=== PATIENT | female | born 1985 | race Two or more races ===

== ENCOUNTER 2021-05-03 19:52 | Emergency (ER) | payer OTHER ==
[~2021-05-03] VITALS: Ht 160 cm; Wt 72.0 kg
[2021-05-03] MEDS ORDERED: IV NORMAL SALINE 1,000ML 1,000 ML IV SCH (21:00)
--- NOTE | 2021-05-03 21:06 | EKG ---
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
[2021-05-03 21:15] VITALS: BP 150/99
[2021-05-03 21:37] LABS: BASO # 0.1 x10^3/uL (0.0-0.2); BASO % 1 % (0-3); EOS % 0 % (0-3); HEMATOCRIT 33.2 % (36.0-47.0); HEMOGLOBIN 10.8 g/dL (12.0-15.5); LYMPH # 1.9 x10^3/uL (1.0-4.8); LYMPH % 21 % (24-48); MEAN CORPUSCULAR HEMOGLOBIN 26 pg (25-35); MEAN CORPUSCULAR HGB CONC 33 g/dL (31-37); MEAN CORPUSCULAR VOLUME 80 fL (79-100); MONO # 0.7 x10^3/uL (0.0-1.1); MONO % 8 % (0-9); NEUT # 6.3 x10^3uL (1.8-7.7); NEUT % 70 % (31-73); PLATELET COUNT 425 x10^3/uL (140-400); RED BLOOD COUNT 4.14 x10^6/uL (3.50-5.40); RED CELL DISTRIBUTION WIDTH 16.6 % (11.5-14.5)
[2021-05-03] MEDS ORDERED: ONDANSETRON PF 4 MG/2 ML VIAL. ONE (21:44)
[2021-05-03] MEDS ORDERED: ONDANSETRON PF 4 MG/2 ML VIAL. IVP ONE (21:45)
--- NOTE | 2021-05-03 21:51 | RAD ---
Exam: Chest one view INDICATION: Chest pain TECHNIQUE: Frontal view of the chest Comparisons: None FINDINGS: The cardiomediastinal silhouette and pulmonary vessels are within normal limits. The lung and pleural spaces are clear. IMPRESSION: No acute cardiopulmonary process. Electronically signed by: Kashif Bailey MD (05/03/2021 9:49 PM) [facility]
[2021-05-03 22:03] LABS: CALCIUM 8.9 mg/dL (8.5-10.1); CREATININE 0.7 mg/dL (0.6-1.0); GFR 93.6; POTASSIUM 3.7 mmol/L (3.5-5.1)
[2021-05-03 22:09] LABS: ALBUMIN/GLOBULIN RATIO 0.9 (1.0-1.7); MAGNESIUM 1.8 mg/dL (1.8-2.4); TOTAL BILIRUBIN 0.3 mg/dL (0.2-1.0); TOTAL PROTEIN 8.3 g/dL (6.4-8.2)
[2021-05-03 22:15] LABS: PREG TEST PT QUAL NEGATIVE (NEG)
--- NOTE | 2021-05-03 22:18 | PHYS DOC ---
Past History Past Medical History: No Pertinent History (ADRIAN HEDRICK DO) Past Surgical History: No Surgical History (LASHAY VICTOR APRN) Past Surgical History: No Surgical History (ADRIAN HEDRICK DO) Smoking: Non-smoker Alcohol Use: Rarely Drug Use: None (ADRIAN HEDRICK DO) General Adult EDM: Chief Complaint: SHOULDER INJURY HPI: HPI: Patient is a 36-year-old female who presents with left shoulder arm pain, numbness. Patient states she was on her way home from work when all of a sudden she started having pain in her left shoulder which radiated up into her left side of her jaw. Patient also reported nausea at that time. Denied chest pain, shortness of breath. Patient denies recent illness. Symptoms started about 6 PM. Patient states that symptoms resolved prior to being seen in the emergency room. Patient reports that she took a Tylenol at home when symptoms started. Patient reports that she had Covid in December and since then she has suffered from chronic migraines. Patient states that symptoms do resolve once she takes odcb-obv-uiapvqy ibuprofen or Tylenol, but has daily headaches. patient states her uncle in his 40s from an [place]. Patient denies any cardiac history. (LASHAY VICTOR APRN) Review of Systems: Review of Systems: ROS At least 10 ROS systems have been reviewed and are negative except as documented in the HPI. General: Negative except as outlined in HPI above. Skin: Negative except as outlined in HPI above. HEENT: Negative except as outlined in HPI above. Neck: Negative except as outlined in HPI above. Respiratory: Negative except as outlined in HPI above.. Cardiovascular: Negative except as outlined in HPI above. Abdomen: Negative except as outlined in HPI above. : Negative except as outlined in HPI above. Back/MSK: Negative except as outlined in HPI above. Neuro: Negative except as outlined in HPI above. Psych: Negative except as outlined in HPI above. (LASHAY VICTOR APRN) Current Medications: Current Meds: Current Medications Medications (Trade) Dose Ordered Sig/Miky Start Time Stop Time Status Last Admin Dose Admin Ondansetron HCl (Zofran) 4 mg STK-MED ONCE 05/03/21 21:44 05/03/21 21:45 DC Sodium Chloride 1,000 ml @ 1,000 mls/hr Q1H 05/03/21 21:00 05/03/21 21:59 DC 05/03/21 21:00 1,000 MLS/HR (LASHAY VICTOR APRN) Allergies: Allergies: Allergies Coded Allergies Type Severity Reaction Last Updated Verified No Known Drug Allergies 05/03/21 No (LASHAY VICTOR APRN) Physical Exam: PE: Constitutional: Well developed, well nourished, no acute distress, non-toxic appearance. HENT: bilateral external ears normal, oropharynx moist, no oral exudates, nose normal. Eyes: PERRLA, conjunctiva normal, no discharge. Neck: Normal range of motion, no tenderness, supple, no stridor. Cardiovascular:Heart rate regular rhythm, no murmur Lungs & Thorax: Bilateral breath sounds clear to auscultation Abdomen: Bowel sounds normal, soft, no tenderness, no masses Skin: Warm, dry, no erythema, no rash. Back: No tenderness, no CVA tenderness. Extremities: No tenderness, no cyanosis, no clubbing, ROM intact, no edema. Neurologic: Alert and oriented X 3, normal motor function, normal sensory function, no focal deficits noted. Psychologic: Affect normal, judgement normal, anxious mood (LASHAY VICTOR APRN) PE: Constitutional: Well developed, well nourished, no acute distress, non-toxic appearance HENT: Normocephalic, atraumatic Eyes: Conjunctiva normal, no discharge Neck: Normal range of motion, supple Lungs & Thorax: No respiratory distress, equal chest rise and fall Abdomen: Soft, no tenderness Skin: Warm, dry, no erythema, no rash Extremities: No tenderness, ROM intact, no edema Neurologic: Alert and oriented X 3, no focal deficits noted Psychologic: Affect normal, judgment normal (ADRIAN HEDRICK DO) Current Patient Data: Labs: Laboratory Tests Test 05/03/21 21:05 White Blood Count 9.0 x10^3/uL (4.0-11.0) Red Blood Count 4.14 x10^6/uL (3.50-5.40) Hemoglobin 10.8 g/dL (12.0-15.5) L Hematocrit 33.2 % (36.0-47.0) L Mean Corpuscular Volume 80 fL (79-100) Mean Corpuscular Hemoglobin 26 pg (25-35) Mean Corpuscular Hemoglobin Concent 33 g/dL (31-37) Red Cell Distribution Width 16.6 % (11.5-14.5) H Platelet Count 425 x10^3/uL (140-400) H Neutrophils (%) (Auto) 70 % (31-73) Lymphocytes (%) (Auto) 21 % (24-48) L Monocytes (%) (Auto) 8 % (0-9) Eosinophils (%) (Auto) 0 % (0-3) Basophils (%) (Auto) 1 % (0-3) Neutrophils # (Auto) 6.3 x10^3uL (1.8-7.7) Lymphocytes # (Auto) 1.9 x10^3/uL (1.0-4.8) Monocytes # (Auto) 0.7 x10^3/uL (0.0-1.1) Eosinophils # (Auto) 0.0 x10^3/uL (0.0-0.7) Basophils # (Auto) 0.1 x10^3/uL (0.0-0.2) Sodium Level 138 mmol/L (136-145) Potassium Level 3.7 mmol/L (3.5-5.1) Chloride Level 102 mmol/L (98-107) Carbon Dioxide Level 23 mmol/L (21-32) Anion Gap 13 (6-14) Blood Urea Nitrogen 12 mg/dL (7-20) Creatinine 0.7 mg/dL (0.6-1.0) Estimated GFR (Cockcroft-Gault) 93.6 BUN/Creatinine Ratio 17 (6-20) Glucose Level 117 mg/dL (70-99) H Calcium Level 8.9 mg/dL (8.5-10.1) Magnesium Level Pending Total Bilirubin Pending Aspartate Amino Transferase (AST) Pending Alanine Aminotransferase (ALT) Pending Alkaline Phosphatase Pending Troponin I High Sensitivity 5 ng/L (4-50) QU-Cvh-A-Type Natriuretic Peptide Pending Total Protein Pending Albumin Pending Albumin/Globulin Ratio Pending Vital Signs: Vital Signs Date Time Temp Pulse Resp B/P (MAP) Pulse Ox O2 Delivery O2 Flow Rate FiO2 05/03/21 21:15 98.1 84 18 150/99 (116) 98 Room Air (LASHAY VICTOR APRN) EKG: EKG: Sinus rhythm. Heart rate [address] Hedrick [id number] [] (LASHAY VICTOR APPAREL MERCHANDISER) Radiology/Procedures: Radiology/Procedures: [] Exam: Chest one view INDICATION: Chest pain TECHNIQUE: Frontal view of the chest Comparisons: None FINDINGS: The cardiomediastinal silhouette and pulmonary vessels are within normal limits. The lung and pleural spaces are clear. IMPRESSION: No acute cardiopulmonary process. Electronically signed by: Kashif Bailey MD (05/03/2021 9:49 PM) [facility] (LASHAY VICTOR APRN) Radiology/Procedures: PROCEDURE: CT ANGIOGRAPHY CHEST CTA Chest with contrast: Clinical History: Reason: OMNI 350,100ML IV.Chest pain,elevated d dimer.NO HX INJURY OR SX / Spl. Instructions: / History: . Axial helical images of the chest were obtained after the administration of 100 cc of IV Omnipaque 350 and timed appropriately for a pulmonary arterial study. Conventional axial reconstruction was performed in addition to coronal, sagittal and bilateral oblique MIP (maximum intensity projection). This study was ordered to detect possible pulmonary embolism. There are no filling defects to suggest pulmonary embolism. The lungs and pleural margins are clear. There is no mediastinal or hilar lymphadenopathy. The thoracic aorta appears normal. Impression: 1. No evidence of pulmonary embolism. 2. No significant findings. PQRS Compliance Statement: One or more of the following individualized dose reduction techniques were utilized for this examination: 1. Automated exposure control 2. Adjustment of the mA and/or kV according to patient size 3. Use of iterative reconstruction technique Electronically signed by: Juan Vogel III, MD (05/04/2021 1:32 AM) [facility] PROCEDURE: CT HEAD WO CONTRAST CT Head W/O Contrast: History: Headache Comparison: none Axial images were obtained without contrast. The ventura and white matter appears normal and symmetrical for the patients age. There is no mass effect, extraaxial fluid collections or hydrocephalus. There is no gross bleed. There is no focal loss of ventura-white matter distinction to suggest acute ischemia, i.e. stroke. Impression: No acute findings. PQRS Compliance Statement: One or more of the following individualized dose reduction techniques were utilized for this examination: 1. Automated exposure control 2. Adjustment of the mA and/or kV according to patient size 3. Use of iterative reconstruction technique Electronically signed by: Juan Vogel III, MD (05/03/2021 11:21 PM) [facility] (ADRIAN HEDRICK DO) Heart Score: C/O Chest Pain: Yes HEART Score for Chest Pain: HEART Score for Chest Pain Response (Comments) Value History Slighlty/Non-Suspicious 0 ECG Normal 0 Age < 45 0 Risk Factors 1 or 2 Risk Factors 1 Troponin < Normal Limit 0 Total 1 Risk Factors: Risk Factors: DM, Current or recent (<one month) smoker, HTN, HLP, family history of CAD, obesity. Risk Scores: Score 0 - 3: 2.5% MACE over next 6 weeks - Discharge Home Score 4 - 6: 20.3% MACE over next 6 weeks - Admit for Clinical Observation Score 7 - 10: 72.7% MACE over next 6 weeks - Early Invasive Strategies (LASHAY VICTOR APRN) Course & Med Decision Making: Course & Med Decision Making Pertinent Labs and Imaging studies reviewed. (See chart for details) [] 36-year-old female presents with left shoulder, and arm pain with numbness. Patient was driving home from work when symptoms started. Symptoms started at 6 PM. Symptoms were resolved prior to arrival to ED. Work-up in ER consisted of labs, urinalysis, chest x-ray, troponin, CT head, rapid Covid. All labs unremarkable. Troponin is negative. Heart score of 1. Chest x-ray shows no acute cardiopulmonary process. Patient given nausea medication along with NS bolus. Transfer patient care to Dr. Hedrick at 2254 (LASHAY VICTOR APRN) Course & Med Decision Making 2200-signout received from Lashay MATUTE for patient with chest pain. Patient seen and evaluated by myself. Patient with low risk for cardiac disease. Patient does have a history of prior DVT to right upper extremity for which she was on blood thinners but currently is not. Labs reviewed. Patient with negative troponin initially. Repeat troponin obtained and continue be negative. A D-dimer was also obtained which was elevated. Patient also pending CT head secondary to headaches at home. CT head without acute process. A CT angio was obtained secondary to elevated D-dimer. CT angio without signs of PE or other abnormality. Patient stable for discharge with outpatient follow-up with PCP. Discussed findings and plan with patient and family, who acknowledge understanding and agreement. (ADRIAN HEDRICK DO) Zoila Disclaimer: Zoila Disclaimer: This electronic medical record was generated, in whole or in part, using a voice recognition dictation system. (LASHAY VICTOR APRN) Departure Departure: Impression: Primary Impression: Chest pain Qualified Codes: R07.9 - Chest pain, unspecified Additional Impression: Headache Qualified Codes: R51.9 - Headache, unspecified Disposition: HOME / SELF CARE / HOMELESS Condition: STABLE Referrals: YANCY GLASER (PCP) Patient Instructions: Chest Pain (Nonspecific), [id number]-Hqno, Headache, FAQs Additional Instructions: Increase fluid hydration. May use qapi-ovd-shramta ibuprofen and or Tylenol for pain or discomfort. Attending Signature Attending Signature I have personally interviewed and examined the patient. All charts, labs, and imaging studies were reviewed. I agree with the PA/CONTEMPORARY OR MODERN DANCER's findings, exam, and plan. (ADRIAN HEDRICK DO) LASHAY VICTOR APRN May 03, 2021 22:18 ADRIAN HEDRICK DO May 04, 2021 01:53
[2021-05-03 22:47] LABS: BILIRUBIN,URINE NEG (NEG); CLARITY,URINE CLEAR; COLOR,URINE YELLOW; GLUCOSE,URINE NEG (NEG); UROBILINOGEN,URINE 0.2 mg/dL (0.2 mg/dL)
[2021-05-03 22:48] LABS: BACTERIA,URINE MANY /HPF (0-FEW); NITRITE,URINE NEG (NEG); SQUAMOUS EPITHELIAL CELL,UR MANY /LPF
--- NOTE | 2021-05-03 23:24 | RAD ---
CT Head W/O Contrast: History: Headache Comparison: none Axial images were obtained without contrast. The ventura and white matter appears normal and symmetrical for the patients age. There is no mass effe ct, extraaxial fluid collections or hydrocephalus. There is no gross bleed. There is no focal loss of ventura-white matter distinction to suggest acute ischemia, i.e. stroke. Impression: No acute findings. RS Compliance Statement: One or more of the following individualized dose reduction techniques were utilized for this examinat ion: 1. Automated exposure control 2. Adjustment of the mA and/or kV according to patient size 3. Use of iterative reconstruction technique Electronically signed by: Juan Vogel III, MD (05/03/2021 11:21 PM) [facility]
[2021-05-04] MEDS ORDERED: CONTRAST GIVEN. MC PRN (00:45)
[2021-05-04] MEDS ORDERED: IOHEXOL 350 MG/ML 100 ML VIAL. IV ONE (01:00)
--- NOTE | 2021-05-04 01:35 | RAD ---
CTA Chest with contrast: Clinical History: Reason: OMNI 350,100ML IV.Chest pain,elevated d dimer.NO HX INJURY OR SX / Spl. Ins tructions: / History: . Axial helical images of the chest were obtained after the administration of 100 cc of IV Omnipaque 35 0 and timed appropriately for a pulmonary arterial study. Conventional axial reconstruction was perf ormed in addition to coronal, sagittal and bilateral oblique MIP (maximum intensity projection). Thi s study was ordered to detect possible pulmonary embolism. There are no filling defects to suggest pulmonary embolism. The lungs and pleural margins are clear. There is no mediastinal or hilar lymphadenopathy. The thoracic aorta appears normal. Impression: 1. No evidence of pulmonary embolism. 2. No significant findings. PQRS Compliance Statement: One or more of the following individualized dose reduction techniques were utilized for this examinat ion: 1. Automated exposure control 2. Adjustment of the mA and/or kV according to patient size 3. Use of iterative reconstruction technique Electronically signed by: Juan Vogel III, MD (05/04/2021 1:32 AM) [facility]
== END 2021-05-04 02:00 | disposition home or self-care (01) ==
LOC: ER 19:52
DX: R07.9 Chest pain, unspecified (principal); R51.9 Headache, unspecified; M25.512 Pain in left shoulder; R20.0 Anesthesia of skin
CPT/HCPCS: 36415; 70450; 71045; 71275; 80053; 81001; 81025; 83735; 83880; 84484; 84703; 85025; 85379; 85610; 85730; 87086; 93005; 96361; 96374; 99285; J2405; J7030; Q9967